=== PATIENT | female | born 1995 | race African-American/Black ===

== ENCOUNTER 2018-01-19 20:04 | Emergency (ER) | payer OTHER, MEDICAID ==
[~2018-01-19] VITALS: Ht 157.5 cm; Wt 45.4 kg
[2018-01-19] MEDS ORDERED: Morphine Sulfate 4mg/ml Inj IVP ONE ×2 (20:45→21:45)
[2018-01-19 21:16] LABS: EOSINOPHILS % (AUTO) 0.4 % (0.0-3.0); HEMOGLOBIN 14.9 G/DL (12.0-16.0); LYMPHOCYTES % (AUTO) 49.9 % (20.0-45.0); MEAN CORPUSCULAR VOLUME 87 FL (80-99); MONOCYTES % (AUTO) 6.3 % (1.0-10.0); NEUTROPHILS % (AUTO) 41.4 % (45.0-75.0); PLATELET COUNT 361 K/UL (150-450); RED BLOOD COUNT 4.95 M/UL (4.20-5.40); RED CELL DISTRIBUTION WIDTH 11.8 % (11.6-14.8); WHITE BLOOD COUNT 9.3 K/UL (4.8-10.8)
[2018-01-19 21:20] LABS: ANION GAP 12 mmol/L (5-15); BLOOD UREA NITROGEN 12 mg/dL (7-18); CALCIUM 9.5 MG/DL (8.5-10.1); CARBON DIOXIDE 23 MMOL/L (21-32); CHLORIDE 102 MMOL/L (98-107); CREATININE 1.2 MG/DL (0.55-1.30); POTASSIUM 3.1 MMOL/L (3.5-5.1); SODIUM 137 MMOL/L (136-145)
[2018-01-19 21:24] LABS: INR 1.1 (0.9-1.1)
[2018-01-19 21:31] LABS: ALANINE AMINOTRANSFERASE 126 U/L (12-78); ALBUMIN 4.5 G/DL (3.4-5.0); ALBUMIN/GLOBULIN RATIO 1.2 (1.0-2.7); ALKALINE PHOSPHATASE 62 U/L (46-116); ASPARTATE AMINO TRANSFERASE 36 U/L (15-37); BILIRUBIN,TOTAL 1.3 MG/DL (0.2-1.0)
[2018-01-19 21:32] LABS: BILIRUBIN,DIRECT 0.3 MG/DL (0.0-0.3)
--- NOTE | 2018-01-19 22:38 | Emergency Room Report ---
History of Present Illness General Chief Complaint: Abdominal Pain Source: Patient (Jarrod Bond) Present Illness HPI Patient is a 22-year-old female who presented after increased epigastric pain. Patient had prior history of gallstones. She reports having constant pain throughout the day. She denies any fever. The patient is normally followed at [facility]. She reports having epigastric pain which did not radiate. This was unchanged by position. She has associated nausea. The pain was severe nature. She denies prior abdominal surgeries. (Jarrod Bond) Allergies: Coded Allergies: No Known Allergies (Unverified , 01/19/18) Patient History Past Medical History: see triage record Last Menstrual Period: n/a Now: No - depo Reviewed Nursing Documentation: PMH: Agreed; PSxH: Agreed (VarunJarrod) Nursing Documentation-PMH Past Medical History: No History, Except For Hx Gastrointestinal Problems: Yes - gallstones (Jarrod Bond) Review of Systems All Other Systems: negative except mentioned in HPI (VarunJarrod) Physical Exam Vital Signs Date Time Temp Pulse Resp B/P (MAP) Pulse Ox O2 Delivery O2 Flow Rate FiO2 01/19/18 20:13 98.3 136 16 183/101 98 Room Air 98.2 Sp02 EP Interpretation: reviewed, normal General Appearance: moderate distress, thin Head: atraumatic ENT: normal ENT inspection, hearing grossly normal, normal voice Neck: normal inspection, full range of motion, supple, no bony tend Respiratory: normal inspection, lungs clear, normal breath sounds, no respiratory distress, no retraction, no wheezing Cardiovascular #1: regular rate, rhythm, no edema Gastrointestinal: normal inspection, normal bowel sounds, non tender, soft, no guarding, no hernia Genitourinary: no CVA tenderness Musculoskeletal: normal inspection, back normal, normal range of motion Neurologic: normal inspection, alert, oriented x3, responsive, fur liner III-XII nml as tested, speech normal Psychiatric: other - tearful, moaning Skin: normal inspection, normal color, no rash (Jarrod Bond) Medical Decision Making Diagnostic Impression: Primary Impression: Abdominal pain Additional Impression: Marijuana abuse ER Course Patient presented for abdominal pain. Differential diagnoses included ischemic bowel, appendicitis, perforated viscus, abdominal aortic aneurysm, inferior myocardial infarction, viral gastroenteritis. Because of complexity of patient' s case laboratory testing and imaging studies were ordered. The patient noted to have severe pain and was given morphine for pain. She was also given IV acid blockers. Laboratory studies are unremarkable. Abdominal ultrasound showed no evidence of gallstones. Pelvic ultrasound was ordered. The patient was given IM Haldol after discussion with Dr. VIKTOR Kemp [facility]. The patient apparently had multiple visits here for hyperemesis and abdominal pain related to marijuana use. The patient would not provide urine initially. Patient was endorsed to Dr. Montiel pending urine testing and pelvic ultrasound. Labs Test 01/19/18 20:40 White Blood Count 9.3 K/UL (4.8-10.8) Red Blood Count 4.95 M/UL (4.20-5.40) Hemoglobin 14.9 G/DL (12.0-16.0) Hematocrit 43.0 % (37.0-47.0) Mean Corpuscular Volume 87 FL (80-99) Mean Corpuscular Hemoglobin 30.0 PG (27.0-31.0) Mean Corpuscular Hemoglobin Concent 34.6 G/DL (32.0-36.0) Red Cell Distribution Width 11.8 % (11.6-14.8) Platelet Count 361 K/UL (150-450) Mean Platelet Volume 5.1 FL (6.5-10.1) Neutrophils (%) (Auto) 41.4 % (45.0-75.0) Lymphocytes (%) (Auto) 49.9 % (20.0-45.0) Monocytes (%) (Auto) 6.3 % (1.0-10.0) Eosinophils (%) (Auto) 0.4 % (0.0-3.0) Basophils (%) (Auto) 2.0 % (0.0-2.0) Prothrombin Time 11.8 SEC (9.30-11.50) Prothromb Time International Ratio 1.1 (0.9-1.1) Activated Partial Thromboplast Time 23 SEC (23-33) Sodium Level 137 MMOL/L (136-145) Potassium Level 3.1 MMOL/L (3.5-5.1) Chloride Level 102 MMOL/L (98-107) Carbon Dioxide Level 23 MMOL/L (21-32) Anion Gap 12 mmol/L (5-15) Blood Urea Nitrogen 12 mg/dL (7-18) Creatinine 1.2 MG/DL (0.55-1.30) Estimat Glomerular Filtration Rate 56.2 mL/min (>60) Glucose Level 162 MG/DL (74-106) Calcium Level 9.5 MG/DL (8.5-10.1) Total Bilirubin 1.3 MG/DL (0.2-1.0) Direct Bilirubin 0.3 MG/DL (0.0-0.3) Aspartate Amino Transf (AST/SGOT) 36 U/L (15-37) Alanine Aminotransferase (ALT/SGPT) 126 U/L (12-78) Alkaline Phosphatase 62 U/L (46-116) Total Protein 8.3 G/DL (6.4-8.2) Albumin 4.5 G/DL (3.4-5.0) Globulin 3.8 g/dL Albumin/Globulin Ratio 1.2 (1.0-2.7) Lipase 103 U/L (73-393) (Jarrod Bond) ER Course patient signed out to me by Dr Bond On re-eval, patient feels much better s/p haldol Symptoms resolved She wants to go home Doesnt want to wait for additional pelvic sono Will DC Close PMD/[employer] followup recommended as needed (BLUE MONTIEL M.D.) Last Vital Signs Date Time Temp Pulse Resp B/P (MAP) Pulse Ox O2 Delivery O2 Flow Rate FiO2 01/19/18 20:13 98.3 136 16 183/101 98 Room Air 98.2 Status: improved (Jarrod Bond) Status: improved (BLUE MONTIEL M.D.) Disposition: HOME, SELF-CARE Condition: Stable Jarrod Bond Jan 19, 2018 22:38 BLUE MONTIEL M.D. Jan 19, 2018 23:48
[2018-01-19] MEDS ORDERED: Haloperidol 5mg/ml Inj IM ONE (22:45)
[2018-01-19 23:45] VITALS: BP 170/98
[2018-01-20 00:25] VITALS: BP 183/101
--- NOTE | 2018-01-20 11:38 | Diagnostic Imaging Report ---
Indication: Abnormal liver function tests Technique: Goncalves-scale and duplex images of the upper abdomen were obtained Comparison: none Findings: Gallbladder is unremarkable, without stones, wall thickening, nor pericholecystic fluid. Sonographic Bhakta's sign is negative. Common bile duct measures 3 mm in diameter. No intrahepatic biliary ductal dilatation. Liver demonstrates normal echogenicity, no focal abnormality. Portal vein and hepatic veins are patent. Pancreas is unremarkable. Spleen is unremarkable. Left kidney measures 9.4 cm in length. Right kidney measures 9.4 cm length. Both kidneys demonstrate normal echogenicity. There is no hydronephrosis. Small hyperechoic focus in the periphery of the left renal sinus could represent a small calculus . Non-aneurysmal abdominal aorta . No free intraperitoneal fluid Impression: Negative for gallstones or dilated ducts Questionable small nonobstructing left renal calculus versus artifact Otherwise unremarkable
== END 2018-01-20 00:29 | disposition home or self-care (01) ==
LOC: EMR 20:40
DX: R10.13 Epigastric pain (principal); F12.10 Cannabis abuse, uncomplicated
CPT/HCPCS: 36415; 76700; 80053; 82248; 83690; 85025; 85610; 85730; 86850; 86900; 86901; 96372; 96374; 96375; 99284; J1630; J2270; J2405; S0028